=== PATIENT | male | born 1960 | race Caucasian/White ===

== ENCOUNTER 2025-04-26 09:54 | Outpatient (CLI) | payer MEDICARE, SELFPAY ==
--- NOTE | ~2025-04-26 | CT_ITS ---
EXAMINATION:CT lung screening DATE: 04/26/2025 10:15 INDICATION: Screening TECHNIQUE: Computed tomography (CT) of the chest was performed without intravenous contrast. The dose-length product (DLP) was 110.50 mGy-cm. COMPARISON: None. FINDINGS: Scattered tiny calcified granulomas nodules, and mild irregular nodular biapical thickening noted but no suspicious lung nodules or masses. Heart and great vessels within normal limits. Bones appear intact. No acute process seen in the visualized portion of the upper abdomen. Cholelithiasis is noted. IMPRESSION: 1. Benign-appearing nodules as above. No gross acute intrathoracic abnormality. 2. Lung RADS 2. Recommend correlation with follow-up low-dose lung cancer screening chest CT in 12 months. Reviewed, dictated and finalized at location A. PTIONIST SECRETARY IMPRESSION: 1. Benign-appearing nodules as above. No gross acute intrathoracic abnormality. 2. Lung RADS 2. Recommend correlation with follow-up low-dose lung cancer scree jeni chest CT in 12 months.
--- NOTE | ~2025-04-26 | US_ITS ---
EXAM/PROCEDURE: US aorta [facility] scr[facility] HISTORY: Personal hx of nicotine dependence COMPARISON: None available. TECHNIQUE: Aorta screening FINDINGS: Visualized portions of the proximal mid and distal abdominal aorta are normal in size with the greatest measurement being in the proximal and mid portions of 2.1 cm. Both iliac arteries appear normal in size. IMPRESSION: The abdominal aorta is normal size with no evidence of AAA. Reviewed, dictated and finalized at location A. APEUTIC RECREATION LEADER
== END 2025-04-26 09:55 | disposition home or self-care (01) ==
PROVIDERS: PCP Internal Medicine; Visit Provider Internal Medicine
DX: Z12.2 Encounter for screening for malignant neoplasm of respiratory organs (principal); Z87.891 Personal history of nicotine dependence; R91.8 Other nonspecific abnormal finding of lung field
CPT/HCPCS: 71271; 76706